=== PATIENT | female | born 1960 | race Caucasian/White ===

== ENCOUNTER 2019-05-10 15:51 | Outpatient (CLI) | payer MEDICARE, SELFPAY ==
--- NOTE | ~2019-05-10 | XR_ITS ---
EXAMINATION: XR chest 2V EXAM DATE: 05/10/2019 16:30 INDICATION: R09.89 Other specified symptoms and signs involving the circu... TECHNIQUE: Frontal and lateral projections of the chest obtained and reviewed. Comparison is made to prior examination from 11/01/2018. FINDINGS: The lungs are clear. There are no pleural effusions. The cardiomediastinal silhouette is within normal limits. There is no pneumothorax suspected. Right eighth and ninth rib fractures whic h are probably old. IMPRESSION: No acute cardiopulmonary findings. Reviewed, dictated and finalized at location A.
== END 2019-05-10 15:52 | disposition home or self-care (01) ==
PROVIDERS: PCP Internal Medicine; Visit Provider Nurse Practitioner
DX: R09.89 Other specified symptoms and signs involving the circulatory and respiratory systems (principal)
CPT/HCPCS: 71046

== ENCOUNTER 2019-07-06 15:00 | Outpatient (CLI) | payer MEDICARE, SELFPAY ==
--- NOTE | ~2019-07-06 | CT_ITS ---
EXAMINATION: CT lung screening EXAM DATE: 07/06/2019 15:31 INDICATION: Personal history of nicotine dependence. TECHNIQUE: Spiral low dose CT of the chest without contrast. Axial, coronal and sagittal images were reviewed. The dose-length product (DLP) for this examination was 88.51 mGy-cm. The exposure was ta ilored according to patient size (auto mA exposure control), and iterative reconstruction (ASIR) was used as additional dose reduction technique. There is no prior study for comparison. FINDINGS: There is 3 mm nodule in right upper lobe on axial image 44. Several other calcified and non calcified nodules 3 mm or less in size bilaterally. There is mild to moderate centrilobular emphysema . Small amount of opacity within the right lower lobe medial and posterior segments, most likely nav ris. There is mild bronchiectasis. There is no mediastinal, hilar or axillary lymphadenopathy. The re are no pleural or pericardial effusions. There is no pneumothorax. Heart normal in size. The re is moderate coronary arterial calcification, arterial sclerosis. There is 2.5 cm left adrenal gland mass statistically most likely adenoma but not meeting density cri teria for adenoma. Could be reevaluated on patient's follow-up held the CT. There are 2 subacute to c hronic right rib fractures, one has partial osseous fusion, the other does not have any solid bone br idging at this point, could be delayed union given that these were described on rib series last Sept mb. There is a 1.8 cm right thyroid lobe nodule. This was reported on an ultrasound in 2007. IMPRESSION: 1. Lung-RADS category 2S, benign appearance or behavior (<1% chance of malignancy); recommend continu ed LDCT screening in 1 year. 2. Left adrenal mass statistically most likely lipid poor adenoma. Could be reevaluated on next low-d ose chest CT. If patient has known primary cancer then consider MRI abdomen without and with contrast for further evaluation. Reviewed, dictated and finalized at location A. IMPRESSION: 1. Lung-RADS category 2S, benign appearance or behavior (<1% chance of malignan cy); recommend continued LDCT screening in 1 year. 2. Left adrenal mass statistically most likely lipid poor adenoma. Could be ree valuated on next low-dose chest CT. If patient has known primary cancer then co nsider MRI abdomen without and with contrast for further evaluation.
== END 2019-07-06 15:01 | disposition home or self-care (01) ==
PROVIDERS: PCP Internal Medicine; Visit Provider Nurse Practitioner
DX: Z12.2 Encounter for screening for malignant neoplasm of respiratory organs (principal); Z87.891 Personal history of nicotine dependence
CPT/HCPCS: G0297

== ENCOUNTER 2019-08-25 13:52 | Outpatient (CLI) | payer MEDICARE, SELFPAY ==
[2019-08-25 14:17] LABS: Basophils Percent Auto 0.3 % (0.2-1.2); Eosinophils Absolute Auto 0.4 K/mm3 (0-0.3); Eosinophils Percent Auto 3.2 % (0-4.4); Hematocrit 42.1 % (37.0-47.0); Hemoglobin 13.2 g/dL (12.0-15.0); Immature Granulocyte Absolute 0.03 K/mm3 (0.00-0.031); Immature Granulocyte Percent A 0.2 % (0-0.5); Lymphocytes Percent Auto 22.4 % (18.3-44.2); Mean Corpuscular HGB Conc 31.4 g/dl (32-36); Mean Corpuscular Hemoglobin 24.4 pg (26-34); Mean Platelet Volume 10.7 fl (7.4-10.4); Monocytes Absolute Auto 0.5 K/mm3 (0.1-0.6); Monocytes Percent Auto 4.5 % (2.6-8.5); Neutrophils Absolute Auto 8.3 K/mm3 (1.3-6.7); Neutrophils Percent Auto 69.4 % (45.5-73.1); Platelet Count Result 366 k/mm3 (150-375); Red Cell Distribution Width 16.3 % (11.5-14.5)
[2019-08-25 15:16] LABS: Alanine Aminotransferase 25 U/L (4-35); Albumin Level 4.1 g/dL (3.5-5.1); Alkaline Phosphatase 158 U/L (38-126); Aspartate Amino Transferase 30 U/L (14-36); Bilirubin,Total 0.2 mg/dL (0.2-1.3); Blood Urea Nitrogen 17 mg/dL (7-17); Calcium 9.3 mg/dL (8.4-10.2); Carbon Dioxide 25 mmol/L (22-30); Chloride 96 mmol/L (98-107); Estimated Glomerular Filt Rate > 60; Glucose 216 mg/dL (65-105); Potassium 4.4 mmol/L (3.4-5.0); Sodium 131 mmol/L (137-145)
[2019-08-25 15:43] LABS: Erythrocyte Sedimentation Rate 18 mm/hr (0-20)
[2019-08-25 16:00] LABS: CRP 1.8 mg/dL (<1.0)
[2019-09-01 14:05] LABS: BCR/abl Prior Result Not Given
[2019-09-01 16:07] LABS: BCR/abl P190 Not Detected; BCR/abl P210 Not Detected
[2019-09-01 16:08] LABS: BCR/abl P190 Chg YES; BCR/abl P210 Chg YES
== END 2019-08-25 13:53 | disposition home or self-care (01) ==
LOC: ANHLAB 13:54
PROVIDERS: PCP Internal Medicine; Visit Provider Internal Medicine Hematology & Oncology
DX: D72.829 Elevated white blood cell count, unspecified (principal)
CPT/HCPCS: 36415; 80053; 81206; 81207; 85025; 85652; 86140; 88184

== ENCOUNTER 2019-10-30 14:48 | Emergency (ER) | payer MEDICARE, SELFPAY ==
--- NOTE | ~2019-10-30 | CT_ITS ---
EXAMINATION: CT cervical spine wo con DATE: 10/30/2019 15:37 INDICATION: Head injury. TECHNIQUE: Computed tomography (CT) of the cervical spine was performed without intravenous contrast. Automated exposure control and iterative reconstruction technique were employed. The dose-length pro duct was 341.02 mGy-cm. COMPARISON: Maxillofacial CT 10/31/2018 FINDINGS: There are nodules in the thyroid measuring up to 2.4 cm on the right. There is 6 degrees de xtrocurvature of cervical spine. There is mild kyphosis of cervical spine. Vertebral body heights are normal. There is mildly decreased disc height at C6-C7. 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 The following disc levels are specifically discussed: C2-C3: There is no uncovertebral joint osteoarthritis. There is mild bilateral facet joint osteoarthr itis. There is no neural foraminal stenosis. There is no central canal stenosis. C3-C4: There is no uncovertebral joint osteoarthritis. There is mild right facet joint osteoarthritis . There is no neural foraminal stenosis. There is no central canal stenosis. C4-C5: There is no uncovertebral joint osteoarthritis. There is no facet joint osteoarthritis. There is no neural foraminal stenosis. There is mild central canal stenosis. C5-C6: There is no uncovertebral joint osteoarthritis. There is no facet joint osteoarthritis. There is no neural foraminal stenosis. There is mild central canal stenosis. C6-C7: There is mild left uncovertebral joint osteoarthritis. There is mild right facet joint osteoar thritis. There is no neural foraminal stenosis. There is no central canal stenosis. C7-T1: There is no uncovertebral joint osteoarthritis. There is severe bilateral facet joint osteoart hritis. There is no neural foraminal stenosis. There is no central canal stenosis. IMPRESSION: 1. No acute fracture. 2. Mild cervical spondylosis. Reviewed, dictated and finalized at location A.
--- NOTE | ~2019-10-30 | XR_ITS ---
EXAMINATION: XR shoulder LT min 2V DATE: 10/30/2019 15:47 INDICATION: Left shoulder pain. Fall. TECHNIQUE: 4 views of left shoulder were obtained. COMPARISON: None. FINDINGS: Bone alignment is normal. No fracture. Glenohumeral joint is normal. There is mild acromioc lavicular joint osteoarthritis. IMPRESSION: 1. Mild left acromioclavicular joint osteoarthritis. Reviewed, dictated and finalized at location A.
--- NOTE | ~2019-10-30 | CT_ITS ---
EXAMINATION: CT brain wo con DATE: 10/30/2019 15:37 INDICATION: Head injury. TECHNIQUE: Computed tomography (CT) of the head was performed without intravenous contrast. The mA wa s adjusted according to patient size. Iterative reconstruction technique was employed. The dose-lengt h product was 605.33 mGy-cm. COMPARISON: Head CT 10/31/2018 FINDINGS: There is an old infarct in right frontal lobe. There is an old infarct in right parietal lo be. There is an old infarct involving left parietal lobe and adjacent aspects of left frontal and occ ipital lobes. There is no intracranial hemorrhage, acute infarction, or abnormal intracranial mass le annabel. There is an old lacunar infarct in left thalamus. There is an old lacunar infarct in left cauda te nucleus. The ventricles are normal in size. There is mild mucosal thickening in the ethmoid sinuse s. The mastoid air cells are normal. IMPRESSION: 1. Old infarcts involving the frontal lobes, parietal lobes, left occipital lobe, left caudate nucleu s, and left thalamus. Reviewed, dictated and finalized at location A. IMPRESSION: 1. Old infarcts involving the frontal lobes, parietal lobes, left occipital lob e, left caudate nucleus, and left thalamus.
--- NOTE | ~2019-10-30 | XR_ITS ---
EXAMINATION: XR forearm LT 2V DATE: 10/30/2019 15:27 INDICATION: Left forearm injury. TECHNIQUE: 2 views of left forearm were obtained. COMPARISON: None. FINDINGS: Bone alignment is normal. No fracture. Joint spaces are well maintained. There is no elbow joint effusion. There is soft tissue swelling at the dorsum of the forearm. IMPRESSION: 1. No fracture. Reviewed, dictated and finalized at location A. IMPRESSION: 1. No fracture.
--- NOTE | ~2019-10-30 | XR_ITS ---
EXAMINATION: XR foot LT min 3V DATE: 10/30/2019 15:22 INDICATION: Left foot injury and pain. TECHNIQUE: 4 views of left foot were obtained. COMPARISON: Left foot radiographs 03/05/2014 FINDINGS: There is an oblique fracture of diaphysis of fifth metatarsal. The distal fracture fragment demonstrates 2 mm dorsomedial displacement. There is mild osteoarthritis of some of the midfoot join ts, metatarsophalangeal joints, and interphalangeal joints. There are enthesophytes at the posterior and plantar aspects of calcaneal tuberosity. IMPRESSION: 1. Oblique fracture of diaphysis of fifth metatarsal. Reviewed, dictated and finalized at location A.
[2019-10-30 14:51] VITALS: BP 140/81; PULSE 101; RESP 18; TEMP 36.4; O2SAT 98
--- NOTE | 2019-10-30 15:17 | ED.GENADULT ---
HPI - General Adult General Chief complaint: Fall Stated complaint: fall down concrete steps. Time Seen by Provider: 10/30/19 14:56 Source: patient Mode of arrival: ambulatory Limitations: no limitations History of Present Illness HPI narrative: Patient is a 59-year-old female who presents to emergency department for evaluation of injuries related to falling down several stairs after being pulled down by her dog just prior to arrival. Patient presents with abrasion to the left forearm and left bicep and tenderness of the left lateral forefoot where she has swelling and tenderness. Patient notes head injury denies loss of consciousness syncope or other extremity injury. Patient has not had anything for symptoms presents in no distress pain is worse with activity and movement Related Data Home Medications Medication Instructions Recorded Confirmed blood sugar diagnostic #10 each 03/15/19 09/28/19 blood-glucose meter #1 each 03/15/19 09/28/19 Allergies Allergy/AdvReac Type Severity Reaction Status Date / Time adhesive Allergy Unknown rash Verified 10/30/19 14:54 codeine Allergy Unknown Itching Verified 10/30/19 14:54 Review of Systems Review of Systems: All systems reviewed & are unremarkable except as noted in HPI and below PMFSH Past Medical History Medical History Allergies Chicken pox CVA (cerebral vascular accident) Depression HLD (hyperlipidemia) HTN (hypertension) Measles Mumps Peripheral arterial disease Peripheral polyneuropathy Thromboangiitis obliterans (Buerger's disease) TIA (transient ischemic attack) Surgical History Surgical History History of hysterectomy Family History Family History (Updated 03/15/19 @ 07:[address] [facility]) Sibling Patient's sister is in good health Patient's brother is Mother Carcinoma of colon Hypertension Diabetes mellitus HLD (hyperlipidemia) Social History Social History Smoking packs per day: 1 Smoking cigarettes per day: 20.0 Smoking status: Current every day smoker Tobacco type: cigarettes Alcohol intake: never Gender identity (if verbalized by the patient): Female Exam Narrative: Exam Narrative: GENERAL: Well-appearing, well-nourished, and in no acute distress. HEAD: Normocephalic, atraumatic. EYES: PERRLA and EOMI. ENT: Nares clear, no rhinorrhea or epistaxis. Mucous membranes moist. NECK: Supple. No adenopathy or masses. CHEST: Clear to auscultation. No respiratory distress. No wheezes rales or rhonchi HEART: Regular rate and rhythm. No murmur heard. Normal peripheral pulses. ABDOMEN: Soft, nontender, nondistended EXTREMITIES: Normal range of motion. No edema. Abrasion and contusion of the left mid forearm. Abrasion of the left bicep. Swelling and tenderness of the left lateral forefoot no midline cervical thoracic or lumbar tenderness. SKIN: Warm, dry, no rash. NEURO: No focal deficits. Alert and oriented x3.Cranial nerves II through XII grossly intact. Neurovascularly intact. Capillary refill less than 2 seconds PSYCH: Normal mood and affect. Course Course Emergency Course: Patient in the room aware of case findings treatment plan and diagnosis felt appropriate for outpatient reevaluation found to have foot fracture will follow with orthopedic surgery and primary care and pain management for further evaluation Vital Signs Vital signs: Vital Signs Temperature 97.5 F L 10/30/19 14:51 Pulse Rate 101 H 10/30/19 14:51 Respiratory Rate 18 10/30/19 14:51 Blood Pressure 140/81 10/30/19 14:51 Pulse Oximetry 98 10/30/19 14:51 Temperature 97.5 F L 10/30/19 14:51 Pulse Rate 101 H 10/30/19 14:51 Respiratory Rate 18 10/30/19 14:51 Blood Pressure 140/81 10/30/19 14:51 Pulse Oximetry 98 10/30/19 14:51
[2019-10-30] MEDS: ACETAMINOPHEN 500 MG TABLET 1000 MG PO (15:59)
== END 2019-10-30 17:00 | disposition home or self-care (01) ==
PROVIDERS: Emergency Provider Emergency Medicine; PCP Internal Medicine
DX: S92.352A Displaced fracture of fifth metatarsal bone, left foot, initial encounter for closed fracture (principal); S50.12XA Contusion of left forearm, initial encounter; S40.012A Contusion of left shoulder, initial encounter; S09.90XA Unspecified injury of head, initial encounter; Z86.73 Personal history of transient ischemic attack (TIA), and cerebral infarction without residual deficits; E78.5 Hyperlipidemia, unspecified; I10 Essential (primary) hypertension; I73.9 Peripheral vascular disease, unspecified; G62.9 Polyneuropathy, unspecified; F17.210 Nicotine dependence, cigarettes, uncomplicated; W10.9XXA Fall (on) (from) unspecified stairs and steps, initial encounter
CPT/HCPCS: 70450; 72125; 73030; 73090; 73630; 99284; A9270

== ENCOUNTER 2020-04-18 13:24 | Outpatient (CLI) | payer MEDICARE, SELFPAY | END 2020-04-18 13:25 | disposition home or self-care (01) | LOC: ANHCOVIDVC 13:24 | PROVIDERS: PCP Internal Medicine | DX: Z23 Encounter for immunization (principal) | CPT/HCPCS: 0001A; 91300 ==

== ENCOUNTER 2020-05-09 13:16 | Outpatient (CLI) | payer MEDICARE, SELFPAY | END 2020-05-09 13:17 | disposition home or self-care (01) | LOC: ANHCOVIDVC 13:16 | PROVIDERS: PCP Internal Medicine | DX: Z23 Encounter for immunization (principal) | CPT/HCPCS: 0002A; 91300 ==